=== PATIENT | male | born 1950 | race Caucasian/White ===

== ENCOUNTER 2024-12-19 14:42 | Emergency (ER) | payer MEDICARE, OTHER ==
[~2024-12-19] VITALS: Ht 167.6 cm; Wt 70.4 kg
[2024-12-19] MEDS ORDERED: LISI10TA22 PO (15:02)
[2024-12-19 22:48] VITALS: BP 160/74; TEMP 96.7; O2SAT 97
[2024-12-19] MEDS ORDERED: CEPH500C PO (23:14)
[2024-12-19] MEDS: CEPHALEXIN 500 MG CAP PO ONE (23:22)
[2024-12-19] MEDS: BOOSTRIX VACCINE (TETANUS/DIPHTH/ACEL. PERTUSSIS) 0.5ML SYR IM.IMMUN ONE (23:22)
== END 2024-12-19 23:29 | disposition home or self-care (01) ==
LOC: M ED 14:42
DX: L03.116 Cellulitis of left lower limb (principal); Z79.2 Long term (current) use of antibiotics; Z79.899 Other long term (current) drug therapy; Z23 Encounter for immunization